=== PATIENT | female | born 1980 | race Caucasian/White ===

== ENCOUNTER 2021-05-22 13:20 | Inpatient (IN) | payer BC, SELFPAY ==
[2021-05-22 13:27] VITALS: BP 176/111; PULSE 99; RESP 18; TEMP 37; O2SAT 98; BMI 28.0
--- NOTE | 2021-05-22 13:40 | ECG_ITS ---
Test Reason : MEDICAL CLEAR Blood Pressure : / mmHG Vent. Rate : 063 BPM Atrial Rate : 063 BPM P-R Int : 156 ms QRS Dur : 088 ms QT Int : 406 ms P-R-T Axes : 060 068 055 degrees QTc Int : 415 ms Normal sinus rhythm Normal ECG No previous ECGs available Referred By: Miriam Chavez Electronically Signed By:Elpidio Valdes
--- NOTE | 2021-05-22 13:42 | ED_ITS ---
HPI - Psych General Chief Complaint: Psychiatric Symptoms Stated Complaint: tried to commit suicide, drug and alcohol overdose Time Seen by Provider: 05/22/21 13:40 Source: patient Mode of arrival: ambulatory Limitations: no limitations History of Present Illness MD complaint: suicidal ideation and feels depressed Onset (ago): day(s) Duration: getting worse History of same: Yes Relieving factors: none Exacerbating factors: alcohol and drug use Context: significant life stressor Associated psychiatric symptoms: depression and suicidal ideation Associated symptoms: denies other symptoms If self harm: admits thoughts of self harm and has acted on plan Related Data Home Medications Medication Instructions Recorded Confirmed citalopram 1 tab PO DAILY 05/22/21 05/22/21 lorazepam 1 tab PO BEDTIME PRN 05/22/21 05/22/21 Allergies Allergy/AdvReac Type Severity Reaction Status Date / Time morphine Allergy Difficulty Verified 05/22/21 13:27 Breathing Review of Systems Review of Systems: Constitutional : No Fever, No Chills ENT/Mouth : No Ear Pain, No Nasal Congestion, No sore throat Eyes: No Eye Pain, No Swelling, No Redness Cardiovascular : No Chest Pain, No SOB Respiratory : No Cough, No Sputum, No Dyspnea Gastrointestinal : No Nausea, No Vomiting, No Diarrhea, No Hematochezia, No Melena Genitourinary : No Dysuria, No Urinary Frequency, No Hematuria Musculoskeletal : No Myalgias Skin : No Skin Lesions, No rash Neuro : No Weakness, No Numbness, No Paresthesias, No Dizziness, No Headache Psych : positive Anxiety, positive Depression, positive SI no HI Heme/Lymph: No Lymphadenopathy Endocrine : No Polyuria, No Polydipsia All other systems reviewed and are negative [facility] Past Medical History Attestation statement: The following information was validated with the patient. Medical History Anxiety Depression Social History Social History (Updated 05/22/21 @ 13:50 by Miriam Chavez DO) Alcohol intake: current Alcohol intake frequency: 3 or more drinks per day Alcohol type: hard liquor Patient Tobacco Use Status: Current everyday Tobacco user Use of substances other than those prescribed or required for medical reasons: Yes Substance Use Type: Crack/Cocaine Substance Use Frequency: Recent Binge Last Used Substance: Hours (ago) Any prior treatment program specific to substance use: No Advance Directives: No Advance Directives Information Provided: Yes Patient : No Physical Exam Vital Signs: Vital Signs: Last Vital Signs Temp 97.5 F 05/22/21 14:12 Pulse 93 05/22/21 14:12 Resp 16 05/22/21 14:12 BP 136/101 H 05/22/21 14:12 Pulse Ox 99 05/22/21 14:12 Body Mass Index 29.2 Appearance: Alert. Oriented X3. No acute distress. Anxious and tearful Eyes: Pupils equal, round and reactive to light. ENT: Pharynx normal. Neck: Normal inspection. Neck supple. CVS: Normal heart rate and rhythm. Pulses normal. Respiratory: No respiratory distress. Breath sounds normal. Abdomen: Soft and nontender. Skin: Skin warm and dry. Normal skin color. Normal skin turgor. Extremities: No lower extremity edema. No calf ttp Neuro: Oriented X 3. No motor deficit. No sensory deficit. CN2-12 intact Psych: + SI, anxiety and depression, no HI Course Course Course Narrative: Physician observation started at 513pm Patient placed in physician observation because the patient needed more time for CARE team to evaluate her for possible inpatient psychiatry admission, she needs repeat APAP level though denies tylenol ingestion and her LFTs are normal. At the time observation was started the patient's vitals were stable, patient is alert and oriented but slightly anxious, Neuro: nonfocal, CV RRR, Lungs clear section 12 bedsearch per CARE team MDM - Psych MDM Narrative Medical decision making narrative: 40 yo female with anxiety/depression here with ETOH and cocaine abuse last night to hurt herself will need labs, EKG , CARE team consult, PO ativan for anxiety. Lab Data Result diagrams: 05/22/21 14:35 05/22/21 14:35 Labs: Lab Results 05/22/21 05/22/21 05/22/21 Range/Units 14:13 14:35 14:35 WBC 8.0 (4.8-10.8) X10*3/uL RBC 4.64 (4.20-5.50) X10*6/uL Hgb 15.4 (12.0-16.0) g/dl Hct 43.4 (37-47) % MCV 93.5 (80-98) fL MCH 33.2 H (27.0-33.0) pg MCHC 35.5 H (31.0-35.0) g/dl RDW 11.9 (11.0-16.0) % Plt Count 301 (160-400) X10*3/uL MPV 9.4 (9.4-12.3) fL Immature Gran % (Auto) 0.3 (0.0-0.4) % Neut % (Auto) 65.1 (45-73) % Lymph % (Auto) 26.1 (20-40) % [place] % (Auto) 7.4 (2-11) % Eos % (Auto) 0.5 (0-4) % Baso % (Auto) 0.6 (0-2) % Lymph # (Auto) 2.1 (1.2-4.9) X10*3/uL [place] # (Auto) 0.6 (0.1-1.2) X10*3/uL Eos # (Auto) 0.0 (0.0-0.4) X10*3/uL Baso # (Auto) 0.1 (0.0-0.2) X10*3/uL Abs Immat Gran (auto) 0.02 (0.00-0.03) X10*3/uL Absolute Neuts (auto) 5.2 (2.0-8.3) X10*3/uL Absolute Nucleated RBC 0.000 (0.0-0.012) X10*3/uL Nucleated RBC % (auto) 0.0 (0.0-0.2) /100WBC Sodium 140 (135-145) mmol/L Potassium 4.3 (3.3-5.1) mmol/L Chloride 102 (96-108) mmol/L Carbon Dioxide 27 (22-29) mmol/L Anion Gap 15 (12-20) BUN 7 L (9-16) mg/dL Creatinine 0.89 (0.5-1.4) mg/dL Estim Creat Clear Calc 99.4 Estimated GFR > 60 Random Glucose 91 (60-115) mg/dL Calcium 9.8 (8.4-10.2) mg/dL Magnesium 1.9 (1.6-2.6) mg/dL Total Bilirubin 0.4 (0.0-1.0) mg/dL Direct Bilirubin 0.2 (0.0-0.5) mg/dL AST 19 (5-31) U/L ALT 19 (0-31) U/L Alkaline Phosphatase 64 (39-117) U/L Total Protein 7.2 (6.5-8.0) g/dL Albumin 4.6 (3.5-5.0) g/dL Beta HCG, Quant < 2 mIU/mL Urine Color Urine Appearance Urine pH (5.0-8.0) Ur Specific [place] (1.005-1.025) Urine Protein (NEG-TRACE) MG/DL Urine Glucose (UA) (NEG) MG/DL Urine Ketones (NEG) MG/DL Urine Blood (NEG) Urine Nitrite (NEG) Ur Leukocyte Esterase (NEG) Salicylates < 5.0 L (15-30) mg/dL Urine Opiates Screen (Not Detect) Acetaminophen 11 (<30) mcg/mL Ur Barbiturates Screen (Not Detect) Ur Phencyclidine Scrn (Not Detect) Ur Amphetamines Screen (Not Detect) U Benzodiazepines Scrn (Not Detect) Urine Cocaine Screen (Not Detect) U Marijuana (THC) Screen (Not Detect) Ethyl Alcohol mg/dL COVID-19 (SUSHMA) Negative (Negative) COVID-19 Clin Com See Note 05/22/21 05/22/21 05/22/21 Range/Units 14:35 17:36 17:58 WBC (4.8-10.8) X10*3/uL RBC (4.20-5.50) X10*6/uL Hgb (12.0-16.0) g/dl Hct (37-47) % MCV (80-98) fL MCH (27.0-33.0) pg MCHC (31.0-35.0) g/dl RDW (11.0-16.0) % Plt Count (160-400) X10*3/uL MPV (9.4-12.3) fL Immature Gran % (Auto) (0.0-0.4) % Neut % (Auto) (45-73) % Lymph % (Auto) (20-40) % [place] % (Auto) (2-11) % Eos % (Auto) (0-4) % Baso % (Auto) (0-2) % Lymph # (Auto) (1.2-4.9) X10*3/uL [place] # (Auto) (0.1-1.2) X10*3/uL Eos # (Auto) (0.0-0.4) X10*3/uL Baso # (Auto) (0.0-0.2) X10*3/uL Abs Immat Gran (auto) (0.00-0.03) X10*3/uL Absolute Neuts (auto) (2.0-8.3) X10*3/uL Absolute Nucleated RBC (0.0-0.012) X10*3/uL Nucleated RBC % (auto) (0.0-0.2) /100WBC Sodium (135-145) mmol/L Potassium (3.3-5.1) mmol/L Chloride (96-108) mmol/L Carbon Dioxide (22-29) mmol/L Anion Gap (12-20) BUN (9-16) mg/dL Creatinine (0.5-1.4) mg/dL Estim Creat Clear Calc Estimated GFR Random Glucose (60-115) mg/dL Calcium (8.4-10.2) mg/dL Magnesium (1.6-2.6) mg/dL Total Bilirubin (0.0-1.0) mg/dL Direct Bilirubin (0.0-0.5) mg/dL AST (5-31) U/L ALT (0-31) U/L Alkaline Phosphatase (39-117) U/L Total Protein (6.5-8.0) g/dL Albumin (3.5-5.0) g/dL Beta HCG, Quant mIU/mL Urine Color YELLOW Urine Appearance CLEAR Urine pH 7.0 (5.0-8.0) Ur Specific [place] 1.010 (1.005-1.025) Urine Protein TRACE (NEG-TRACE) MG/DL Urine Glucose (UA) NEG (NEG) MG/DL Urine Ketones NEG (NEG) MG/DL Urine Blood NEG (NEG) Urine Nitrite NEG (NEG) Ur Leukocyte Esterase NEG (NEG) Salicylates (15-30) mg/dL Urine Opiates Screen (Not Detect) Acetaminophen 4 (<30) mcg/mL Ur Barbiturates Screen (Not Detect) Ur Phencyclidine Scrn (Not Detect) Ur Amphetamines Screen (Not Detect) U Benzodiazepines Scrn (Not Detect) Urine Cocaine Screen (Not Detect) U Marijuana (THC) Screen (Not Detect) Ethyl Alcohol 55 mg/dL COVID-19 (SUSHMA) (Negative) COVID-19 Clin Com 05/22/21 Range/Units 17:58 WBC (4.8-10.8) X10*3/uL RBC (4.20-5.50) X10*6/uL Hgb (12.0-16.0) g/dl Hct (37-47) % MCV (80-98) fL MCH (27.0-33.0) pg MCHC (31.0-35.0) g/dl RDW (11.0-16.0) % Plt Count (160-400) X10*3/uL MPV (9.4-12.3) fL Immature Gran % (Auto) (0.0-0.4) % Neut % (Auto) (45-73) % Lymph % (Auto) (20-40) % [place] % (Auto) (2-11) % Eos % (Auto) (0-4) % Baso % (Auto) (0-2) % Lymph # (Auto) (1.2-4.9) X10*3/uL [place] # (Auto) (0.1-1.2) X10*3/uL Eos # (Auto) (0.0-0.4) X10*3/uL Baso # (Auto) (0.0-0.2) X10*3/uL Abs Immat Gran (auto) (0.00-0.03) X10*3/uL Absolute Neuts (auto) (2.0-8.3) X10*3/uL Absolute Nucleated RBC (0.0-0.012) X10*3/uL Nucleated RBC % (auto) (0.0-0.2) /100WBC Sodium (135-145) mmol/L Potassium (3.3-5.1) mmol/L Chloride (96-108) mmol/L Carbon Dioxide (22-29) mmol/L Anion Gap (12-20) BUN (9-16) mg/dL Creatinine (0.5-1.4) mg/dL Estim Creat Clear Calc Estimated GFR Random Glucose (60-115) mg/dL Calcium (8.4-10.2) mg/dL Magnesium (1.6-2.6) mg/dL Total Bilirubin (0.0-1.0) mg/dL Direct Bilirubin (0.0-0.5) mg/dL AST (5-31) U/L ALT (0-31) U/L Alkaline Phosphatase (39-117) U/L Total Protein (6.5-8.0) g/dL Albumin (3.5-5.0) g/dL Beta HCG, Quant mIU/mL Urine Color Urine Appearance Urine pH (5.0-8.0) Ur Specific [place] (1.005-1.025) Urine Protein (NEG-TRACE) MG/DL Urine Glucose (UA) (NEG) MG/DL Urine Ketones (NEG) MG/DL Urine Blood (NEG) Urine Nitrite (NEG) Ur Leukocyte Esterase (NEG) Salicylates (15-30) mg/dL Urine Opiates Screen Not Detected (Not Detect) Acetaminophen (<30) mcg/mL Ur Barbiturates Screen Not Detected (Not Detect) Ur Phencyclidine Scrn Not Detected (Not Detect) Ur Amphetamines Screen Not Detected (Not Detect) U Benzodiazepines Scrn Not Detected (Not Detect) Urine Cocaine Screen POSITIVE H (Not Detect) U Marijuana (THC) Screen Not Detected (Not Detect) Ethyl Alcohol mg/dL COVID-19 (SUSHMA) (Negative) COVID-19 Clin Com Discharge Plan Discharge Clinical Impression: Depression, Suicidal ideation Prescriptions: No Action citalopram 10 mg tablet 1 tab PO DAILY RF: 0 lorazepam 0.5 mg tablet 1 tab PO BEDTIME PRN (Reason: ANXIETY/SLEEP) RF: 0
[2021-05-22] MEDS: LORazepam 1 MG TABLET 2 MG PO ×2 (13:48→20:09)
[2021-05-22 14:12] VITALS: BP 136/101; PULSE 93; RESP 16; TEMP 36.4; O2SAT 99; BMI 29.2
[2021-05-22 14:39] LABS: MANUAL DIFF FLAG NO
[2021-05-22 14:39] LABS: COVID-19 Test Negative (Negative); IDNOW Serial# 08D9AD1C
[2021-05-22 14:43] LABS: Basophils Absolute Auto 0.1 X10*3/uL (0.0-0.2); Basophils Percent Auto 0.6 % (0-2); Eosinophils Percent Auto 0.5 % (0-4); Hematocrit 43.4 % (37-47); Hemoglobin 15.4 g/dl (12.0-16.0); Imm Gran Abs Auto 0.02 X10*3/uL (0.00-0.03); Imm Gran Pct Auto 0.3 % (0.0-0.4); Lymphocytes Absolute Auto 2.1 X10*3/uL (1.2-4.9); Lymphocytes Percent Auto 26.1 % (20-40); Mean Corpuscular HGB Conc 35.5 g/dl (31.0-35.0); Mean Corpuscular Hemoglobin 33.2 pg (27.0-33.0); Mean Corpuscular Volume 93.5 fL (80-98); Mean Platelet Volume 9.4 fL (9.4-12.3); Monocytes Absolute Auto 0.6 X10*3/uL (0.1-1.2); Monocytes Percent Auto 7.4 % (2-11); Neutrophils Absolute Auto 5.2 X10*3/uL (2.0-8.3); Neutrophils Percent Auto 65.1 % (45-73); Platelet Count 301 X10*3/uL (160-400); Red Blood Count 4.64 X10*6/uL (4.20-5.50); Red Cell Distribution Width 11.9 % (11.0-16.0)
[2021-05-22 15:00] LABS: Ethanol 55 mg/dL
[2021-05-22 15:06] LABS: Acetaminophen LAB 11 mcg/mL (<30); Alanine Aminotransferase 19 U/L (0-31); Albumin Level 4.6 g/dL (3.5-5.0); Alkaline Phosphatase 64 U/L (39-117); Anion Gap 15 (12-20); Aspartate Amino Transferase 19 U/L (5-31); Bilirubin Direct 0.2 mg/dL (0.0-0.5); Bilirubin Total 0.4 mg/dL (0.0-1.0); Blood Urea Nitrogen 7 mg/dL (9-16); Calcium 9.8 mg/dL (8.4-10.2); Carbon Dioxide 27 mmol/L (22-29); Chloride 102 mmol/L (96-108); Creatinine Clr Calc Pharmacy 99.4; Estimated Glomerular Filt Rate > 60; Glucose Random 91 mg/dL (60-115); Magnesium 1.9 mg/dL (1.6-2.6); Potassium 4.3 mmol/L (3.3-5.1); Salicylate < 5.0 mg/dL (15-30); Sodium 140 mmol/L (135-145); Total Protein 7.2 g/dL (6.5-8.0)
[2021-05-22 15:09] LABS: HCG Quantitative < 2 mIU/mL
[2021-05-22 18:05] LABS: Acetaminophen LAB 4 mcg/mL (<30)
[2021-05-22 18:06] LABS: Glucose Urine UA NEG (NEG); Leukocyte Esterase Urine NEG (NEG); Nitrite Urine NEG (NEG); Urine Blood NEG (NEG); Urine Ketones NEG (NEG); Urine Protein TRACE MG/DL (NEG-TRACE)
[2021-05-22 18:07] LABS: Appearance Urine CLEAR; Color Urine YELLOW
[2021-05-22 18:38] LABS: Amphetamine Screen Urine Not Detected (Not Detect); Barbiturates, Urine Not Detected (Not Detect); Benzodiazepines Screen Urine Not Detected (Not Detect); Cannabinoid Screen Urine Not Detected (Not Detect); Cocaine Screen Urine POSITIVE (Not Detect); Opiate Screen Urine Not Detected (Not Detect); Phencyclidine Screen Urine Not Detected (Not Detect)
--- NOTE | 2021-05-22 23:39 | PC.NURSE ---
Patient in bed appears sleeping, no distress observed/reported, EKG was ordered at 1342 and was not done, provider notified since patient is inpatient bed search with no bed available tonight, provider ordered not to disturb the patient at this time and EKG can wait until morning.
--- NOTE | 2021-05-22 23:41 | PC.NURSE ---
THIS STAFF WAS DIRECTED NOT TO WAKE THE PATIENT FOR AN EKG ORDERED @ 13:42 BY SHANNON CHRISTOPHER THAT SPOKE WITH . PT IS SLEEPING AND NOT MOVING OVERNIGHT.
--- NOTE | 2021-05-23 02:06 | MHC.CARE ---
Late entry: CARE team evaluated pt with plan of care for inpatient psychiatric placement. Sect 12a in chart for safety and containment pending facility placement.
--- NOTE | 2021-05-23 06:15 | PC.NURSE ---
Patient slept through the night, no distress observed/reported, asymptomatic withdrawal, compliant with medication, no behavior concerns, compliant with EKG , will continue to monitor.
[2021-05-23 06:37] VITALS: BP 133/81; PULSE 74; RESP 16; TEMP 36.7; O2SAT 98
--- NOTE | 2021-05-23 07:11 | PC.NURSE ---
patient appears to remain at rest at present appears in no distress, respirations are even and unlabored
[2021-05-23] MEDS: Escitalopram Oxalate 5 MG TABLET PO (08:57)
[2021-05-23] MEDS: LORazepam 1 MG TABLET 2 MG PO ×3 (12:50→20:58)
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
[2021-05-23] MEDS: traZODone HCL 50 MG TABLET PO (20:02)
[2021-05-23] MEDS: hydrOXYzine HCL 25 MG TABLET PO (20:02)
[2021-05-23 21:33] VITALS: BP 130/70; PULSE 72; TEMP 36.8
[2021-05-24 08:00] VITALS: BP 111/74; PULSE 71; RESP 14; O2SAT 98
[2021-05-24 08:37] LABS: Estimated Average Glucose 82 mg/dL; Hemoglobin A1c % 4.5 %
[2021-05-24 08:57] LABS: Cholesterol 193 mg/dL; HDL Cholesterol 51 mg/dL; LDL Cholesterol Calculated 109 mg/dl; Magnesium 1.9 mg/dL (1.6-2.6); Triglycerides 167 mg/dL
[2021-05-24] MEDS: Escitalopram Oxalate 5 MG TABLET PO (09:07)
[2021-05-24 09:18] LABS: Free T4 (Free Thyroxine) 0.78 ng/dL (0.71-1.85); Thyroid Stimulating Hormone 1.43 uIU/mL (0.32-4.0)
[2021-05-24 09:36] LABS: Folate 7.6 ng/mL (> or = 4.0); Vitamin B12 304 pg/mL (200-900)
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
[2021-05-24] MEDS: LORazepam 1 MG TABLET 2 MG PO (11:12)
--- NOTE | 2021-05-24 11:38 | PC.NURSE ---
Three Day Letter was signed and filed today. She is hoping to discharge today and watch over her children when her ex- goes away on a business trip.
[2021-05-24 15:05] VITALS: BP 133/86; PULSE 94
[2021-05-24] MEDS: cloNIDine HCL 0.1 MG TABLET PO (15:05)
[2021-05-24 16:40] VITALS: BP 123/68; PULSE 68; TEMP 36.2
[2021-05-24] MEDS: hydrOXYzine HCL 25 MG TABLET PO (18:05)
[2021-05-24 19:30] VITALS: BP 118/70; PULSE 72; TEMP 36.4
[2021-05-24] MEDS: QUEtiapine Fumarate 50 MG TABLET PO (20:42)
[2021-05-24] MEDS: traZODone HCL 50 MG TABLET PO (20:47)
[2021-05-25] MEDS: Escitalopram Oxalate 10 MG TABLET PO (08:20)
[2021-05-25] MEDS: Thiamine HCL 100 MG TABLET PO (08:20)
[2021-05-25] MEDS: Folic Acid 1 MG TABLET PO (08:20)
[2021-05-25] MEDS: QUEtiapine Fumarate 50 MG TABLET PO ×2 (10:26→20:15)
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
[2021-05-25] MEDS: LORazepam 1 MG TABLET 2 MG PO ×2 (13:32→18:09)
[2021-05-25 13:54] VITALS: BMI 28.9
[2021-05-25 18:00] VITALS: BP 98/52; PULSE 110; TEMP 36
[2021-05-25] MEDS: traZODone HCL 50 MG TABLET PO (20:15)
[2021-05-26 06:00] VITALS: BP 107/63; PULSE 73; RESP 18; TEMP 35.6; O2SAT 98
[2021-05-26 08:00] VITALS: BP 105/64; PULSE 83; RESP 16; TEMP 36.6
[2021-05-26] MEDS: Escitalopram Oxalate 10 MG TABLET PO (09:06)
[2021-05-26] MEDS: Folic Acid 1 MG TABLET PO (09:06)
[2021-05-26] MEDS: Thiamine HCL 100 MG TABLET PO (09:06)
[2021-05-26] MEDS: QUEtiapine Fumarate 50 MG TABLET PO ×3 (09:22→20:05)
--- NOTE | 2021-05-26 10:51 | HO.PSYCHPN ---
Subjective Subjective Date of Service: 05/27/21 Reason For Visit: Major depression Alcohol Use D/O Acute Stress D/O Interim History: Pt reports sleeping well. She reports seroquel helpful for anxiety. She reports feeling less overwhelmed. 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 She denies SI/HI. Review of Systems Review of Systems Constitutional : No Fever, No Chills ENT/Mouth : No Ear Pain, No Nasal Congestion, No sore throat Eyes: No Eye Pain, No Swelling, No Redness Cardiovascular : No Chest Pain, No SOB Respiratory : No Cough, No Sputum, No Dyspnea Gastrointestinal : No Nausea, No Vomiting, No Diarrhea, No Hematochezia, No Melena Genitourinary : No Dysuria, No Urinary Frequency, No Hematuria Musculoskeletal : No Myalgias Skin : No Skin Lesions, No rash Neuro : No Weakness, No Numbness, No Paresthesias, No Dizziness, No Headache Psych : positive Anxiety, positive Depression, positive SI no HI Heme/Lymph: No Lymphadenopathy Endocrine : No Polyuria, No Polydipsia All other systems reviewed and are negative Constitutional: Denies increased appetite, Denies weakness, Denies weight gain and Denies weight loss Cardiovascular: Denies chest pain, Denies chest pain at rest, Denies chest pain with activity, Denies irregular heart rhythm, Denies lightheadedness, Denies dyspnea and Denies dyspnea on exertion Respiratory: Denies pain with cough, Denies dyspnea and Denies dyspnea on exertion Gastrointestinal: Denies constipation, Denies fecal incontinence, Denies diarrhea and Denies loose stools Denies weakness Mental Status Exam Mental Status Exam Narrative: Appearance: casually groomed, fair hygiene, in NAD Behavior: guarded Psychomotor: restless Speech: clear, normal rate/rhythm/volume, spontaneous TP: linear TC: no signs of psychosis, minimizing substance use, rejecting help Mood: okay Affect:anxious, figgity SI:denies HI:denies AH/VH:none Delusions:none Insight/judgment:poor x 2. Memory/cog: alert, oriented x 2 Diagnostics Vital Signs (24Hr): Vital Signs - 24 hr 05/26/21 12:00 05/26/21 18:00 05/27/21 06:00 Temperature 97.9 F 98 F Pulse Rate 87 67 83 Respiratory Rate 16 16 Blood Pressure 106/68 118/71 112/70 Pulse Oximetry 98 Body Mass Index 28.9 Labs Results: 05/22/21 14:35 05/22/21 14:35 Medications Medications Current Medications Generic Name Dose Route Start Last Admin Trade Name Freq PRN Reason Stop Dose Admin Acetaminophen 650 mg 05/23/21 14:12 Acetaminophen 325 Mg Tablet PO Q6H PRN Headache/Pain Mild Scale (1-3) Al Hydroxide/Mg Hydroxide 30 ml 05/23/21 14:12 Magnesium Hydrox/Alum Hydrox 30 Ml Oral.Susp PO Q6H PRN Heartburn/Nausea Escitalopram Oxalate 10 mg 05/25/21 09:00 05/27/21 08:18 Escitalopram Oxalate 10 Mg Tablet PO 10 mg DAILY IDA Administration Folic Acid 1 mg 05/24/21 09:00 05/27/21 08:18 Folic Acid 1 Mg Tablet PO 1 mg DAILY IDA Administration Hydroxyzine HCl 25 mg 05/24/21 14:15 05/24/21 18:05 Hydroxyzine Hcl 25 Mg Tablet PO 25 mg Q6H PRN Administration Anxiety Lorazepam 2 mg 05/22/21 18:21 05/25/21 18:09 Lorazepam 1 Mg Tablet PO 2 mg Q4H PRN Administration Alcohol Withdrawal Magnesium Hydroxide 30 ml 05/23/21 14:12 05/26/21 18:05 Milk Of Magnesia 30 Ml Oral.Susp PO 30 ml DAILY PRN Administration Constipation Naltrexone HCl 50 mg 05/26/21 10:05 05/27/21 08:18 Naltrexone Hcl 50 Mg Tablet PO 50 mg DAILY IDA Administration Nicotine Polacrilex 2 mg 05/22/21 15:16 05/26/21 11:35 Nicotine Polacrilex 2 Mg Lozenge BUCCAL 2 mg 8XD PRN Administration nicotine withdrawal Quetiapine Fumarate 50 mg 05/24/21 14:13 05/26/21 09:22 Quetiapine Fumarate 50 Mg Tablet PO 50 mg Q6H PRN Administration anxiety/agitation Quetiapine Fumarate 50 mg 05/26/21 10:05 05/27/21 08:18 Quetiapine Fumarate 50 Mg Tablet PO 50 mg TID IDA Administration Thiamine HCl 100 mg 05/24/21 09:00 05/27/21 08:18 Thiamine Hcl 100 Mg Tablet PO 100 mg DAILY IDA Administration Trazodone HCl 50 mg 05/23/21 14:12 05/26/21 20:05 Trazodone Hcl 50 Mg Tablet PO 50 mg BEDTIME PRN Administration Insomnia Allergies Allergies Allergy/AdvReac Type Severity Reaction Status Date / Time morphine Allergy Difficulty Verified 05/22/21 13:27 Breathing Assessment & Plan Assessment & Plan (1) MDD (major depressive disorder), recurrent episode, moderate: Status: Acute Code(s): F33.1 - Major depressive disorder, recurrent, moderate Assessment and Plan: 1. Increase Celexa to 20mg po daily. In hospital- we have lexapro in formulary- will start lexapro 10mg po daily 2. Clonidine 0.1mg po daily for anxiety (2) Stress reaction causing mixed disturbance of emotion and conduct: Status: Acute Code(s): F43.0 - Acute stress reaction (3) Cocaine use disorder, mild, abuse: Status: Acute Code(s): F14.10 - Cocaine abuse, uncomplicated Assessment and Plan: aftercare planning (4) Alcohol use disorder, moderate, dependence: Status: Acute Code(s): F10.20 - Alcohol dependence, uncomplicated Assessment and Plan: 1. monitor symptoms of withdrawal- prn ativan. No hx of withdrawal seizures or DTs. SBP<150, DBP<90, HR<100. No hallucinosis, no tremors. Pt is anxious. 2. aftercare planning Greater than 50% of the session was spent on counseling and/or coordination of care Reason for contiued inpatient stay Substantial Risk for: harm to self
[2021-05-26] MEDS: Naltrexone HCl 50 MG TABLET PO (11:34)
[2021-05-26 12:00] VITALS: BP 106/68; PULSE 87; RESP 16
[2021-05-26 18:00] VITALS: BP 118/71; PULSE 67; TEMP 36.6
[2021-05-26] MEDS: Milk of Magnesia 30 ML ORAL.SUSP PO (18:05)
[2021-05-26] MEDS: traZODone HCL 50 MG TABLET PO (20:05)
[2021-05-27 06:00] VITALS: BP 112/70; PULSE 83; RESP 16; TEMP 36.6; O2SAT 98
[2021-05-27] MEDS: Thiamine HCL 100 MG TABLET PO (08:18)
[2021-05-27] MEDS: Folic Acid 1 MG TABLET PO (08:18)
[2021-05-27] MEDS: QUEtiapine Fumarate 50 MG TABLET PO ×3 (08:18→21:00)
[2021-05-27] MEDS: Escitalopram Oxalate 10 MG TABLET PO (08:18)
[2021-05-27] MEDS: Naltrexone HCl 50 MG TABLET PO (08:18)
[2021-05-27 12:00] VITALS: BP 100/62; PULSE 78
[2021-05-27] MEDS: LORazepam 1 MG TABLET 2 MG PO (13:48)
[2021-05-27 18:00] VITALS: BP 112/53; PULSE 80; TEMP 36.8
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
[2021-05-27] MEDS: traZODone HCL 50 MG TABLET PO (21:00)
[2021-05-27] MEDS: hydrOXYzine HCL 25 MG TABLET PO (21:00)
[2021-05-28 06:00] VITALS: BP 107/62; PULSE 82; RESP 16; TEMP 36.9; O2SAT 98
[2021-05-28] MEDS: Folic Acid 1 MG TABLET PO (08:16)
[2021-05-28] MEDS: Naltrexone HCl 50 MG TABLET PO (08:16)
[2021-05-28] MEDS: Escitalopram Oxalate 10 MG TABLET PO (08:16)
[2021-05-28] MEDS: QUEtiapine Fumarate 50 MG TABLET PO ×3 (08:16→21:00)
[2021-05-28] MEDS: Thiamine HCL 100 MG TABLET PO (08:16)
[2021-05-28] MEDS: Magnesium Citrate 300 ML SOLUTION PO (13:51)
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
[2021-05-28 18:00] VITALS: BP 109/61; PULSE 105; TEMP 36.1; O2SAT 98
[2021-05-28] MEDS: traZODone HCL 50 MG TABLET PO (21:00)
[2021-05-29] MEDS: hydrOXYzine HCL 25 MG TABLET PO (05:51)
[2021-05-29 06:00] VITALS: BP 99/58; PULSE 79; RESP 18; TEMP 36.3; O2SAT 95
[2021-05-29] MEDS: Escitalopram Oxalate 10 MG TABLET PO (08:46)
[2021-05-29] MEDS: QUEtiapine Fumarate 50 MG TABLET PO (08:46)
[2021-05-29] MEDS: Thiamine HCL 100 MG TABLET PO (08:46)
[2021-05-29] MEDS: Naltrexone HCl 50 MG TABLET PO (08:46)
[2021-05-29] MEDS: Folic Acid 1 MG TABLET PO (08:46)
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
== END 2021-05-29 13:25 | disposition home or self-care (01) | DRG 751 ==
LOC: HO.ED 14:23 → HO.PM5 05-23 14:23
PROVIDERS: Clinical Nurse Specialist Psychiatric/Mental Health, Adult; Admitting Provider Psychiatry & Neurology Psychiatry; Emergency Provider Emergency Medicine; PCP Internal Medicine; Visit Provider Social Worker
DX: F33.1 Major depressive disorder, recurrent, moderate (principal); R45.851 Suicidal ideations; F43.0 Acute stress reaction; F10.20 Alcohol dependence, uncomplicated; F14.10 Cocaine abuse, uncomplicated; F17.210 Nicotine dependence, cigarettes, uncomplicated; Z71.6 Tobacco abuse counseling; Z20.822 Contact with and (suspected) exposure to COVID-19; Z79.899 Other long term (current) drug therapy
CPT/HCPCS: 36415; 80048; 80061; 80076; 80143; 80179; 80307; 81003; 82077; 82607; 82746; 83036; 83735; 84439; 84443; 84702; 85025; 87635; 93005; 99285